=== PATIENT | female | born 1945 | race Caucasian/White ===

== ENCOUNTER → 2017-07-06 | Outpatient (CLI) | payer MEDICARE ==
--- NOTE | 2017-07-11 13:52 | MAM ---
EXAM DESCRIPTION: 3D Screening BILATERAL CLINICAL HISTORY: 71 years, Female, Screening mammogram COMPARISON: April 20, 2016 TECHNIQUE: CC and MLO digital mammograms with 3-D tomosynthesis. No CAD utilized. FINDINGS: There are scattered fibroglandular densities. There is no dominant mass nor any suspicious microcalcifications. Benign microcalcifications are present. IMPRESSION: BIRAD CATEGORY: 2 BENIGN FOLLOW-UP: Routine mammography screening. Electronically signed by: Jamar Clemens MD 07/11/2017 1:50 PM CDT
== END ==
LOC: MAMMO 12:31
PROVIDERS: ATTEND Family Medicine
DX: Z12.31 Encounter for screening mammogram for malignant neoplasm of breast (principal)
CPT/HCPCS: 77063; G0202

== ENCOUNTER 2020-10-28 07:17 | Day surgery (SDC) | payer MEDICARE ==
[~2020-10-28 07:17] MED LIST: BETAMETHASONE ACETATE/BETAMETH 6 MG/ML VIAL IM ONE; BUPIVACAINE 0.5% 30 ML VIAL INJ ONE; LIDOCAINE 1% 10 ML VIAL INJ ONE
[2020-10-28] MEDS ORDERED: LIDOCAINE 1% 10 ML VIAL INJ ONE ×2 (10:32)
[2020-10-28] MEDS ORDERED: BETAMETHASONE ACETATE/BETAMETH 6 MG/ML VIAL IM ONE (10:33)
[2020-10-28] MEDS ORDERED: BUPIVACAINE 0.5% 30 ML VIAL INJ ONE (10:33)
== END 2020-10-28 10:53 | disposition home or self-care (01) ==
LOC: AMB 07:17
PROVIDERS: ATTEND Family Medicine Sports Medicine
DX: M54.5 Low back pain (principal); M47.896 Other spondylosis, lumbar region; E11.9 Type 2 diabetes mellitus without complications; I10 Essential (primary) hypertension; Z88.2 Allergy status to sulfonamides; Z90.710 Acquired absence of both cervix and uterus

== ENCOUNTER 2020-11-11 05:29 | Day surgery (SDC) | payer MEDICARE ==
[2020-11-11] MEDS ORDERED: LIDOCAINE 1% 10 ML VIAL INJ ONE ×3 (07:23→08:30)
[2020-11-11] MEDS ORDERED: BETAMETHASONE ACETATE/BETAMETH 6 MG/ML VIAL IM ONE ×3 (07:23→08:30)
[2020-11-11] MEDS ORDERED: DEXAMETHASONE INJ 10 MG/ML VIAL ONE (07:23)
[2020-11-11] MEDS ORDERED: BUPIVACAINE 0.5% 30 ML VIAL INJ ONE ×3 (07:25→08:30)
== END 2020-11-11 08:46 | disposition home or self-care (01) ==
LOC: AMB 05:29
PROVIDERS: ATTEND Family Medicine Sports Medicine
DX: M54.5 Low back pain (principal); M47.896 Other spondylosis, lumbar region; E11.9 Type 2 diabetes mellitus without complications; I10 Essential (primary) hypertension; Z90.710 Acquired absence of both cervix and uterus